=== PATIENT | male | born 1970 | race Caucasian/White ===

== ENCOUNTER 2021-02-23 12:07 | Emergency (ER) | payer OTHER ==
[~2021-02-23] VITALS: Ht 185.4 cm; Wt 86.3 kg
--- NOTE | 2021-02-23 13:00 | RAD ---
CT HEAD WITHOUT CONTRAST 02/23/2021 12:29 PM Indication: Reason: Slip and fall in shower, head trauma Comparison: None Procedure: Multidetector CT imaging of the head was performed without the administration of contrast. Findings: There is no evidence of acute intracranial hemorrhage. There is no evidence of acute territ orial infarction. Please note that CT is limited for evaluation of acute ischemia. No mass effect or midline shift is identified . The ventricles and basilar cisterns have an appropriate appearance. No abnormal extra-axial fluid collections are seen. No acute osseous changes are identified. Impression: No evidence of acute intracranial abnormality CT cervical spine without contrast. 02/23/2021 12:29 PM Indication:Reason: Slip and fall in shower Comparison Study: None Technique: Multidetector CT imaging of the cervical spine was obtained without administration of cont rast. Findings: There is no evidence of acute fracture or alignment abnormality of the cervical spine. Vert ebral body heights are maintained. Degenerative disc space narrowing is seen at C 67. Facet joints re main aligned. No acute soft tissue changes are identified. Impression: There are changes of the cervical spine without evidence of acute fracture or alignment a bnormality CT DOSING PQRS STATEMENT: One or more of the following individualized dose reduction techniques were utilized for this examinat ion: 1. Automated exposure control 2. Adjustment of the mA and/or kV according to patient size 3. Use of iterative reconstruction technique Electronically signed by: Chato Gallegos MD (02/23/2021 12:57 PM) [id number]
[2021-02-23] MEDS: HYDROcodone/APAP 5/325MG 1 TAB TABLET PO ONE (13:03)
--- NOTE | 2021-02-23 13:07 | RAD ---
CT of the thoracic and lumbar spine without contrast 02/23/2021 INDICATION: Trauma, fall in shower COMPARISON STUDY: None TECHNIQUE: Multidetector CT imaging of the thoracic and lumbar spine was performed without contrast FINDINGS: No evidence of acute fracture or alignment abnormality of the thoracic or lumbar spine is i dentified. Vertebral body heights are grossly maintained. There is diffuse disc space narrowing in th e mid and inferior thoracic spine and throughout the lumbar spine. Appearance could reflect chronic S cheuermann's disease. Facet joints remain aligned at the thoracic and lumbar spine. No significant an tero or retrolisthesis is seen. Chronic Schmorl's herniations are seen in the inferior remains in th e superior endplate at L1. Loss of disc space and degenerative changes are seen, most extensively at L3-S1. There is some component of neural foraminal narrowing at L4-5 and L5-S1 bilaterally. No acute paraspinal soft tissue abnormalities are identified. There appears to be a 3 mm nonobstructing stone in the mid right kidney. IMPRESSION: Degenerative changes of the thoracic and lumbar spine without evidence of acute fracture or alignment abnormality. CT DOSING PQRS STATEMENT: One or more of the following individualized dose reduction techniques were utilized for this examinat ion: 1. Automated exposure control 2. Adjustment of the mA and/or kV according to patient size 3. Use of iterative reconstruction technique Electronically signed by: Chato Gallegos MD (02/23/2021 1:04 PM) [id number]
--- NOTE | 2021-02-23 13:30 | PHYS DOC ---
Past Medical History Additional Past Medical Histor: SLEEP DISORDER Past Surgical History: Other Additional Past Surgical Histo: BACK SURGERY 2019 General Adult EDM: Chief Complaint: MECHANICAL FALL HPI: HPI: Patient is a 50-year-old male presents to the emergency department the chief complaint of bilateral hip pain right shoulder pain neck and mid back and low back pain after a slip and fall in the shower approximately 1115 this morning. Patient reports he was sitting on a shower chair and lost his footing and slipped off the shower chair wedging himself between the chair and the bathtub. Patient reports he was unable to free himself. From this stated he lives at home with his who has a history of an old CVA and was unable to assist him out of the tub. Reports 911 was called and EMS paramedics arrived within 10 to 12 minutes of the fall. Patient reports paramedics assisted him up in which he ambulated without difficulty to the EMS gurney per his statement. Patient rep orted to them he had neck pain in which they placed a cervical hard collar on prior to arrival to the emergency department. Patient denies striking his head, denies head pain. Patient denies visual disturbances, denies syncopal or near syncopal episodes, denies dizziness, denies chest palpitations, denies chest pains or shortness of breath or chest congestion. 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 Patient reports he is on blood pressure medication and BPH medication however denies a history of high blood pressure or prostate problems. Patient reports he had experienced seizures while taking tramadol and was started on divalproex 500 mg extended release medication however has not had a seizure in several years. Patient reports taking Naprosyn for pain at home only, reports he was prescribed Vicodin for pain however has been taken off the Vicodin by [facility] surgeons who plan on replacing both hips in the near future as patient has degenerative joint disease bilateral hips. Patient reports his pain a 8 out of 10 pain level. Patient denies taking pain medications or other medications today. Patient reports he takes most all of his medications at night prior to going to bed. Patient denies other physical complaints or physical concerns. Review of Systems: Review of Systems: 14 body systems of review of systems have been reviewed. See HPI for pertinent positives and negative responses, otherwise all other systems are negative, nonpertinent or noncontributory. Constitutional: Negative except as outlined in HPI above. Skin: Negative except as outlined in HPI above. Eyes: Negative except as outlined in HPI above. HENT: Negative except as outlined in HPI above. Respiratory: Negative except as outlined in HPI above. Cardiovascular: Negative except as outlined in HPI above. GI: Negative except as outlined in HPI above. : Negative except as outlined in HPI above. Musculoskeletal: Negative except as outlined in HPI above. Integument: Negative except as outlined in HPI above. Neurologic: Negative except as outlined in HPI above. Endocrine: Negative except as outlined in HPI above. Lymphatic: Negative except as outlined in HPI above. Psychiatric: Negative except as outlined in HPI above. Heart Score: C/O Chest Pain: No Risk Factors: Risk Factors: DM, Current or recent (<one month) smoker, HTN, HLP, family history of CAD, obesity. Risk Scores: Score 0 - 3: 2.5% MACE over next 6 weeks - Discharge Home Score 4 - 6: 20.3% MACE over next 6 weeks - Admit for Clinical Observation Score 7 - 10: 72.7% MACE over next 6 weeks - Early Invasive Strategies Current Medications: Current Medications Medications (Trade) Dose Ordered Sig/[facility] Start Time Stop Time Status Last Admin Dose Admin Acetaminophen/ Hydrocodone Bitart (Lortab 5/325) 2 tab 1X ONCE 02/23/21 12:30 02/23/21 13:07 DC 02/23/21 13:03 2 TAB Allergies: Allergies: Allergies Coded Allergies Type Severity Reaction Last Updated Verified bupropion Allergy Severe SEIZURES 02/23/21 Yes tramadol Allergy Severe seizures 02/23/21 Yes ibuprofen Adverse Reaction Unknown 02/23/21 Yes Uncoded Allergies Type Severity Reaction Last Updated Verified NICOTINE GUM Adverse Reaction Unknown JITTERS 02/23/21 Physical Exam: PE: Constitutional: Well developed, well nourished, no acute distress, non-toxic appearance. 50-year-old male in no apparent distress. Patient has hard cervical collar in place. HENT: Normocephalic, atraumatic. No contusions, no depressions, no swelling appreciated of the head or face. No malocclusion, no drooling, no trismus, bilateral TMs within normal limits and intact, no drainage from bilateral auditory canals, no raccoon eyes, no delgadillo's sign, bilateral nasal turbinates moist without drainage. Eyes: Conjunctiva normal, no discharge. Satisfactory 6 cardinal eye movements. Neck: Normal range of motion, no stridor. Pain to palpation along mid line cervical spine, no pain to muscular structures of the neck, cervical hard collar left in place. Exam performed with assistance x1 to maintain C-spine precautions. Cardiovascular: No cyanosis appreciated, distal cap refill less than 2 seconds. Lungs & Thorax: Patient is in no respiratory distress, no audible adventitious lung sounds appreciated. Abdomen: Nontender, no abnormalities noted. Skin: Warm, dry, no erythema, no rash. [] Back: No deformities appreciated, no areas of ecchymosis appreciated, no crepitus appreciated of the spine, pain to palpation along mid thoracic spine and lumbar spine. No left-sided or right-sided CVA TTP Extremities: No tenderness, no cyanosis, no clubbing, ROM intact, no edema. Pain to bilateral hips, full active flexion of the hip joints. Distal cap refill less than 2 seconds, no swelling or edema of the lower extremities appreciated, no bruising or ecchymotic areas of the hips or lower extremities appreciated, 2+ dorsalis pedal pulses bilaterally. No reported loss of sensation per patient. Pain elicited with passive range of motion of the right shoulder joint, no crepitus appreciated, no bruising or areas of ecchymosis to the shoulder joint area. 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 Neurologic: Alert and oriented X 3, normal motor function, normal sensory function, no focal deficits noted. Psychologic: Affect normal, judgement normal, mood normal. Current Patient Data: Vital Signs: Vital Signs Date Time Temp Pulse Resp B/P (MAP) Pulse Ox O2 Delivery O2 Flow Rate FiO2 02/23/21 13:06 78 17 122/77 (92) 95 Room Air 02/23/21 12:07 97.9 97.9 EKG: EKG: [] Radiology/Procedures: Radiology/Procedures: PROCEDURE: CT HEAD AND CERVICAL SPINE WO CT HEAD WITHOUT CONTRAST 02/23/2021 12:29 PM Indication: Reason: Slip and fall in shower, head trauma Comparison: None Procedure: Multidetector CT imaging of the head was performed without the administration of contrast. Findings: There is no evidence of acute intracranial hemorrhage. There is no evidence of acute territorial infarction. Please note that CT is limited for evaluation of acute ischemia. No mass effect or midline shift is identified . The ventricles and basilar cisterns have an appropriate appearance. No abnormal extra-axial fluid collections are seen. No acute osseous changes are identified. Impression: No evidence of acute intracranial abnormality CT cervical spine without contrast. 02/23/2021 12:29 PM Indication:Reason: Slip and fall in shower Comparison Study: None Technique: Multidetector CT imaging of the cervical spine was obtained without administration of contrast. Findings: There is no evidence of acute fracture or alignment abnormality of the cervical spine. Vertebral body heights are maintained. Degenerative disc space narrowing is seen at C 67. Facet joints remain aligned. No acute soft tissue changes are identified. Impression: There are changes of the cervical spine without evidence of acute fracture or alignment abnormality CT DOSING PQRS STATEMENT: One or more of the following individualized dose reduction techniques were utilized for this examination: 1. Automated exposure control 2. Adjustment of the mA and/or kV according to patient size 3. Use of iterative reconstruction technique Electronically signed by: Chato Gallegos MD (02/23/2021 12:57 PM) [id number] REASON: Slip and fall in shower PROCEDURE: CT THORACIC SPINE WO CONTRAST CT of the thoracic and lumbar spine without contrast 02/23/2021 INDICATION: Trauma, fall in shower COMPARISON STUDY: None TECHNIQUE: Multidetector CT imaging of the thoracic and lumbar spine was performed without contrast FINDINGS: No evidence of acute fracture or alignment abnormality of the thoracic or lumbar spine is identified. Vertebral body heights are grossly maintained. There is diffuse disc space narrowing in the mid and inferior thoracic spine and throughout the lumbar spine. Appearance could reflect chronic Scheuermann's disease. Facet joints remain aligned at the thoracic and lumbar spine. No significant ambrocio or retrolisthesis is seen. Chronic Schmorl's herniations are seen in the inferior remains in the superior endplate at L1. Loss of disc space and degenerative changes are seen, most extensively at L3-S1. There is some component of neural foraminal narrowing at L4-5 and L5-S1 bilaterally. No acute paraspinal soft tissue abnormalities are identified. There appears to be a 3 mm nonobstructing stone in the mid right kidney. IMPRESSION: Degenerative changes of the thoracic and lumbar spine without evidence of acute fracture or alignment abnormality. CT DOSING PQRS STATEMENT: One or more of the following individualized dose reduction techniques were utilized for this examination: 1. Automated exposure control 2. Adjustment of the mA and/or kV according to patient size 3. Use of iterative reconstruction technique Electronically signed by: Chato Gallegos MD (02/23/2021 1:04 PM) [id number] REASON: Slip and fall in shower PROCEDURE: SHOULDER 2+V RIGHT XR SHOULDER_RIGHT 2+ VIEWS History: Slip and fall. Comparison: None. Technique: 3 views of the right shoulder. Findings: Osseous mineralization is normal. No acute fracture or dislocaton. Mild acromioclavicular and glenohumeral joint degenerative changes. The subacromial space is preserved. Soft tissues are unremarkable. Impression: 1. Mild degenerative changes of the right shoulder without acute osseous abnormality. Electronically signed by: Mir Da Silva MD (02/23/2021 2:06 PM) [id number] REASON: Slip and fall in shower PROCEDURE: HIP BILATERAL WITH PELVIS XR HIP (WITH OR WITHOUT PELVIS) 1 VIEW DATE: 02/23/2021 1:28 PM INDICATION: Slip and fall in shower, pain COMPARISON: None. FINDINGS: Bones: There is no evidence of acute fracture or dislocation. Joints: Severe degenerative changes of the right hip, mild degenerative changes on the left. IMPRESSION: No evidence of acute fracture. Electronically signed by: Pankaj Whittaker MD (02/23/2021 2:08 PM) [id number] Course & Med Decision Making: Course & Med Decision Making Pertinent Labs and Imaging studies reviewed. (See chart for details) 50-year-old male, vital signs reviewed, presents emergency department concerning slipping of his shower chair at home and being wedged against the chair at the bathtub for approximately 10 to 12 minutes prior to EMS arrival to help patient to a standing position. Patient's physical examination concerning for possible bony injury related to slip and shower. Will order CT head and C-spine, CT T- spine and L-spine, x-ray right shoulder, x-ray bilateral hips and pelvis. Will give pain medication while in ED, will leave cervical hard collar in place pending CT result. CTs and x-rays are nonconcerning for acute fracture or bony abnormality. Discussed findings with patient, patient reports good pain relief with pain medication given in the ED today. Discussed with patient ice 30 minutes on 30 minutes off to the sore areas, strict follow-up with primary care soon for ongoing pain management, keep all follow-up appointments with [facility] for bilateral hip replacement, return to ER precautions or concerns. Patient gave verbal understanding of and is amenable to ED discharge planning. Diagnosis slip and fall, right shoulder contusion, bilateral hip contusion. Chronic low back pain. Discussed with the patient all findings and diagnostic testing as well as the need to follow-up with their primary care provider for further evaluation and treatment or return to the ED if any new or worsening symptoms. Strict return precautions were also discussed at length, the patient voiced understanding and agreement with the discharge planning. The patient was nontoxic in appearance, in no apparent distress, and hemodynamically stable at the time of disposition. Dragon Disclaimer: Dragon Disclaimer: This electronic medical record was generated, in whole or in part, using a voice recognition dictation system. Departure Departure Impression: Primary Impression: Other slipping, tripping and stumbling without falling, initial encounter Additional Impressions: Contusion of right shoulder Qualified Codes: S40.011A - Contusion of right shoulder, initial encounter Chronic low back pain Qualified Codes: M54.50 - Low back pain, unspecified; G89.29 - Other chronic pain Chronic hip pain Qualified Codes: M25.551 - Pain in right hip; M25.552 - Pain in left hip; G89.29 - Other chronic pain Disposition: 01 HOME / SELF CARE / HOMELESS Condition: GOOD Patient Instructions: Contusion, Fall Prevention and Home Safety Additional Instructions: You were seen today in the emergency department after you slipped off your shower stool and wedged your body in between the stool and the tub prior to arrival to the emergency department. CT of your head, neck, thoracic spine and lumbar spine did not show any concerning findings. The x-rays of your right shoulder and bilateral hips and pelvis did not show any concerning findings. You did not have any broken bones per these x-ray and CT images. You are given pain medication today in the emergency department. Please use ice packs 30 minutes on and 30 minutes off to sore areas while awake for the next 4872 hours. Please follow-up with your primary care physician for ongoing aches and pain management. Please keep your future appointments with the Ortho clinic regarding your bilateral hip replacement surgery. Take all prescribed medications as directed by your physicians. Return to the emergency department for worsening symptoms or other concerns. Thank you for visiting our Emergency Department. It was a pleasure taking care of you today in the emergency department and we appreciate you trusting us with your care. If any additional problems come up don't hesitate to return to visit us. Please follow up with your primary care provider so they can plan additional care if needed and know about the problem that you had. If symptoms worsen come back to the Emergency Department. Any concerning symptoms that start such as chest pain, shortness of air, weakness or numbness on one side of the body, running high fevers or any other concerning symptoms return to the ER. EMERGENCY DEPARTMENT GENERAL DISCHARGE INSTRUCTIONS Thank you for coming to [facility] Emergency Department (ED) today and trusting us with you care. We trust that you had a positive experience in our Emergency Department. If you wish to speak to the department management, you may call the Director at [phone]. YOUR FOLLOW UP INSTRUCTIONS ARE FOLLOWS: 1. Do you have a private Doctor? If you do not have a private doctor, please ask for a resource list of physicians or clinics that may be able to assist you with follow up care. 2. The Emergency Physicain has interpreted your x-rays. The X-Ray specialist will also review them. If there is a change in the findings, you will be notified in 48 hours when at all possible. 3. A lab test or culture has been done, your results will be reviewed and you will be notified if you need a change in treatment. ADDITIONAL INSTRUCTIONS AND INFORMATION: 1. Your care today has been supervised by a physician who is specially trained in emergency care. Many problems require more than one evaluation for a complete diagnosis and treatment. We recommend that you schedule your follow up appointment as recommended to ensure complete treatment of you illness or injury. If you are unable to obtain follow up care and continue to have a problem, or if your condition worsens, we recommend that you return to the ED. 2. We are not able to safely determine your condition over the phone nor are we able to give sound medical advice over the phone. For these safety reasons, if you call for medical advice we will ask you to come to the ED for further evaluation. 3. If you have any questions regarding these discharge instructions please call the ED at [phone]. SAFETY INFORMATION: In the interest of safety, wellness, and injury prevention; we encourage you to wear your sealbelt, if you smoke; quite smoking, and we encourage family to use a protective helmet for bicycling and other sporting events that present an increased risk for head injury. IF YOUR SYMPTOMS WORSEN OR NEW SYMPTOMS DEVELOP, OR YOU HAVE CONCERNS ABOUT YOUR CONDITION; OR IF YOUR CONDITION WORSENS WHILE YOU ARE WAITING FOR YOUR FOLLOW UP APPOINTMENT; EITHER CONTACT YOUR PRIMARY CARE DOCTOR, THE PHYSICIAN WHOSE NAME AND NUMBER YOU WERE GIVEN, OR RETURN TO THE ED IMMEDIATELY. GISELLE ROBERTO APRN Feb 23, 2021 13:30
--- NOTE | 2021-02-23 14:08 | RAD ---
XR SHOULDER_RIGHT 2+ VIEWS History: Slip and fall. Comparison: None. Technique: 3 views of the right shoulder. Findings: Osseous mineralization is normal. No acute fracture or dislocaton. Mild acromioclavicular and glenohu meral joint degenerative changes. The subacromial space is preserved. Soft tissues are unremarkable. Impression: 1. Mild degenerative changes of the right shoulder without acute osseous abnormality. Electronically signed by: Mir Da Silva MD (02/23/2021 2:06 PM) [id number]
--- NOTE | 2021-02-23 14:10 | RAD ---
XR HIP (WITH OR WITHOUT PELVIS) 1 VIEW DATE: 02/23/2021 1:28 PM INDICATION: Slip and fall in shower, pain COMPARISON: None. FINDINGS: Bones: There is no evidence of acute fracture or dislocation. Joints: Severe degenerative changes of the right hip, mild degenerative changes on the left. IMPRESSION: No evidence of acute fracture. Electronically signed by: Pankaj Whittaker MD (02/23/2021 2:08 PM) [id number]
[2021-02-23 14:31] VITALS: BP 128/85
== END 2021-02-23 14:47 | disposition home or self-care (01) ==
LOC: ER 12:07
DX: S40.011A Contusion of right shoulder, initial encounter (principal); G89.29 Other chronic pain; M54.50 Low back pain, unspecified; M25.551 Pain in right hip; M25.552 Pain in left hip; Z88.6 Allergy status to analgesic agent; Z88.8 Allergy status to other drugs, medicaments and biological substances; W18.2XXA Fall in (into) shower or empty bathtub, initial encounter; Y93.89 Activity, other specified; Y92.89 Other specified places as the place of occurrence of the external cause; Y99.8 Other external cause status
CPT/HCPCS: 70450; 72125; 72128; 72131; 73030; 73521; 99285-25

== ENCOUNTER 2021-03-07 10:36 | Emergency (ER) | payer OTHER ==
[~2021-03-07] VITALS: Ht 170.2 cm; Wt 100.0 kg
[2021-03-07 10:36] VITALS: BP 170/106
--- NOTE | 2021-03-07 11:22 | PHYS DOC ---
Past Medical History Additional Past Medical Histor: SLEEP DISORDER, CHRONIC HIP PAIN Past Surgical History: Other Additional Past Surgical Histo: BACK SURGERY 2019 Smoking Status: Current Every Day Smoker Additional Information: 1/2 PPD Alcohol Use: None General Adult EDM: Chief Complaint: PAIN CONTROL HPI: HPI: Patient is a 50 year old male who presents with left hip pain. Patient reports he gets pain care from the [place] [facility] as well as [facility] pain management. He reports he has prescribed hydrocodone 5325, but they are not relieving his symptoms. Patient presents today asking for "something stronger." Patient denies fever, chills, headache, saddle anesthesia, bowel or bladder incontinence. He last took hydrocodone last night. He reports he is now out of his medications. Review of Systems: Review of Systems: Constitutional: See HPI Eyes: Denies change in visual acuity. HENT: Denies nasal congestion or sore throat. Respiratory: Denies cough or shortness of breath. Cardiovascular: Denies chest pain or edema. GI: Denies abdominal pain, nausea, vomiting, bloody stools or diarrhea. : Denies dysuria or hematuria. Musculoskeletal: See HPI Integument: Denies rash or other skin lesions. Neurologic: See HPI Heart Score: C/O Chest Pain: No Current Medications: Current Medications Medications (Trade) Dose Ordered Sig/[facility] Start Time Stop Time Status Last Admin Dose Admin Ketorolac Tromethamine (Toradol Im) 60 mg 1X ONCE 03/07/21 11:30 03/07/21 11:31 Orphenadrine Citrate (Norflex) 60 mg 1X ONCE 03/07/21 11:30 03/07/21 11:31 Allergies: Allergies: Allergies Coded Allergies Type Severity Reaction Last Updated Verified bupropion Allergy Severe SEIZURES 02/23/21 Yes tramadol Allergy Severe seizures 02/23/21 Yes ibuprofen Adverse Reaction Unknown 02/23/21 Yes Uncoded Allergies Type Severity Reaction Last Updated Verified NICOTINE GUM Adverse Reaction Unknown JITTERS 02/23/21 Physical Exam: PE: Constitutional: Well developed, well nourished, no acute distress, non-toxic appearance. Cardiovascular: Heart rate regular rhythm, no murmur. Lungs & Thorax: Bilateral breath sounds clear to auscultation. Abdomen: Bowel sounds normal, soft, no tenderness, no masses, no pulsatile masses. Skin: Warm, dry, no erythema, no rash. Back: No tenderness, no CVA tenderness. Extremities: Hip flexion/extension limited secondary to pain, neurovascular intact. Extremities otherwise no tenderness, no cyanosis, no clubbing, ROM intact, no edema. Neurologic: Alert and oriented x4, no focal deficits noted. Current Patient Data: Vital Signs: Vital Signs Date Time Temp Pulse Resp B/P (MAP) Pulse Ox O2 Delivery O2 Flow Rate FiO2 03/07/21 10:36 98.2 92 18 170/106 (127) 96 Room Air 98.2 Course & Med Decision Making: Course & Med Decision Making Pertinent Labs and Imaging studies reviewed. (See chart for details) Patient is seeing the spinal surgeon in clinic tomorrow for a corticosteroid hip injection. His next appointment with his pain management doctor at [facility] is on 04/27/2021. According to Henrietta lu, patient picked up 45 hydrocodone 5325s in the past week. Discussed with the patient that his pain management doctors are the appropriate medical providers to prescribe additional pain medications, as they are aware of his ongoing case and pain. I offered Toradol and Norflex in order to alleviate some of the tension he is experiencing that could be contributing to his chronic pain. Patient was reluctant but agreeable. He also states that he is in a hurry to leave, and wishes to leave as soon as medications are administered. I advised that he should stay and make sure that his pain is under control with this treatment plan, but he insists on leaving. I advised the patient to keep a blood pressure log at home and take it with him to his next primary care appointment for further evaluation of his hypertension medication regimen. Patient was given return precautions and understands and is agreeable to discharge plan. Amy Disclaimer: Amy Disclaimer: This electronic medical record was generated, in whole or in part, using a voice recognition dictation system. Departure Departure Impression: Primary Impression: Chronic hip pain Qualified Codes: M25.552 - Pain in left hip; G89.29 - Other chronic pain Additional Impressions: Elevated blood pressure reading Inadequate pain control At risk for polypharmacy Disposition: 01 HOME / SELF CARE / HOMELESS Condition: STABLE Referrals: UNKNOWN PCP NAME (PCP) Patient Instructions: Hip Pain, Managing Your High Blood Pressure, Polypharmacy Problems, [id number] Additional Instructions: Your blood pressure readings in the emergency department today were high. As discussed, you should keep a blood pressure log at home and bring it with you to your next primary care doctor appointment. Additionally, you should keep your appointments with your joint and pain specialist. Please return to the emergency department if you develop new symptoms. OSVALDO CASSIDY Mar 07, 2021 11:22
[2021-03-07] MEDS ORDERED: KETOROLAC 60 MG/2 ML VIAL. IM ONE (11:30)
[2021-03-07] MEDS ORDERED: ORPHENADRINE CITRATE 60 MG/2 ML VIAL. IM ONE (11:30)
== END 2021-03-07 11:41 | disposition home or self-care (01) ==
LOC: ER 10:36
DX: G89.29 Other chronic pain (principal); I10 Essential (primary) hypertension; M25.552 Pain in left hip; F17.200 Nicotine dependence, unspecified, uncomplicated; Z88.6 Allergy status to analgesic agent; Z88.8 Allergy status to other drugs, medicaments and biological substances
CPT/HCPCS: 96372; 99284; J1885; J2360